=== PATIENT | female | born 1955 | race Caucasian/White ===

== ENCOUNTER 2016-07-12 08:02 | Day surgery (SDC) | payer OTHER ==
[~2016-07-12] VITALS: Ht 154.9 cm; Wt 72.5 kg
[2016-07-12 08:47] VITALS: Ht 154.9 cm; Wt 72.5 kg
[2016-07-12] MEDS ORDERED: VITAMIN D (08:51)
[2016-07-12 09:39] VITALS: BP 147/70; PULSE 86; RESP 24
[2016-07-12 10:25] VITALS: BP 123/66; RESP 20
[2016-07-12] MEDS ORDERED: FENTAnyl 50 MCG/ML VIAL ONE (10:25)
[2016-07-12] MEDS ORDERED: MIDAZOLAM 1 MG/ML 2 ML INJ ONE ×2 (10:25)
--- NOTE | 2016-07-12 15:10 | GILP ---
DATE OF PROCEDURE: PROCEDURE PERFORMED: Colonoscopy with biopsy. INDICATION: A 61-year-old female undergoing this procedure for colon cancer screening. The risks o f the procedure, related and unrelated complications, sedative risks, alternatives discussed and inf ormed consent was obtained. DESCRIPTION OF PROCEDURE: The patient was brought to the GI lab, sedated with Versed 4 mg, fentanyl 100 mg of optimal sedation, digital examination done, which was normal. Scope was passed with much ease into rectum, advanced through sigmoid, descending, transverse colon all the way into cecum and finally into terminal ileum. Terminal ileum was normal. The rest of the colon was normal. While coming out, mucosa thoroughly inspected. No gross lesion was identified. Retroversion done i n the rectum. Small hemorrhoids identified. Scope was straightened out and removed with good patie nt tolerance. IMPRESSION: 1. Normal findings all the way into cecum. 2. Normal terminal ileum up to 1 foot. 3. Normal retroversion. 4. Small hemorrhoids. 5. Clarity and cleanliness was good. PLAN: Stay on a high fiber diet. Dictated By: ALONZO REDMAN/VICENTE Conf#: [id number] DID#: [id number] CC: NETTE SALDAÑA;*EndCC*
== END 2016-07-12 13:52 | disposition home or self-care (01) ==
LOC: GIL 08:02 → EDSEX 08:02 → GIL 08:20
PROVIDERS: ATTEND Internal Medicine Gastroenterology
DX: Z12.11 Encounter for screening for malignant neoplasm of colon (principal); K64.9 Unspecified hemorrhoids
CPT/HCPCS: 45380; J2250; J3010; Z7610